=== PATIENT | female | born 1970 | race Caucasian/White ===

== ENCOUNTER 2021-07-21 06:27 | Day surgery (SDC) | payer OTHER ==
[2021-07-20 10:22] LABS: COVID AG,FIA SOURCE NASOPHARYNGEAL
[~2021-07-21] VITALS: Ht 162.6 cm; Wt 60.0 kg
[~2021-07-21 06:27] MED LIST: SODIUM CHLORIDE 0.9% 1,000 ML ONE
[2021-07-21] MEDS ORDERED: ALBUTEROL SULFATE 2.5 MG/0.5 ML NEB SOLUTION NEB ONE (06:28)
[2021-07-21] MEDS ORDERED: LIDOCAINE 2% 5 ML JELLY TP ONE (06:28)
[2021-07-21] MEDS ORDERED: BENZOCAINE 20% 50 MCG/SPRAY 57 GM TP ONE (06:28)
[2021-07-21] MEDS ORDERED: LIDOCAINE 4% 50 ML SOLUTION TP ONE (06:28)
[2021-07-21] MEDS ORDERED: SODIUM CHLORIDE 0.9% 1,000 ML IV ONE (06:30)
[2021-07-21] MEDS ORDERED: FentaNYL CITRATE PF 100 MCG/2 ML VIAL ONE (07:07)
[2021-07-21] MEDS ORDERED: MIDAZOLAM HCL 5 MG/ML VIAL ONE (07:08)
[2021-07-21] MEDS ORDERED: MethylPREDNISolone SOD SUCC 125 MG/2 ML VIAL IVP ONE (09:30)
[2021-07-21] MEDS ORDERED: MethylPREDNISolone SOD SUCC 125 MG/2 ML VIAL ONE (10:05)
[2021-07-21] MEDS ORDERED: OXYGEN THERAPY IH SCH (20:00)
== END 2021-07-21 11:20 | disposition home or self-care (01) ==
LOC: SURGERY 06:27
PROVIDERS: ATTEND Internal Medicine Critical Care Medicine
DX: J38.4 Edema of larynx (principal); B37.0 Candidal stomatitis; E78.00 Pure hypercholesterolemia, unspecified; Z79.899 Other long term (current) drug therapy; Z98.890 Other specified postprocedural states
CPT/HCPCS: 31623; 31624; 36415; 71045; 84703; 87015; 87070; 87101; 87205; 87206; 87220; 87426; 88112; 88184; 88185; 88312; C9803; J2250; J2930; J3010; J7030; J7613; Z7610